=== PATIENT | female | born 1945 | race Caucasian/White ===

== ENCOUNTER 2023-12-02 07:52 | Day surgery (SDC) | payer OTHER ==
[2023-12-02] VITALS (10 sets, daily range): BP systolic 109–142; BP diastolic 51–88; PULSE 57–80; RESP 12–16; TEMP 98.3; O2SAT 97–100
[~2023-12-02] VITALS: Ht 154.9 cm; Wt 52.3 kg
[2023-12-02] MEDS: tranexamic acid inj. 1,000 MG in normal saline IV soln 100ML IV ONE (05:30)
[~2023-12-02 07:52] MED LIST: ASCO100031 PO; CALC600T22 PO; LISI20TA28 PO; MULT-1249 PO; RAME8TAB24 PO; SERT-434 PO; TRAZ-251 PO
[2023-12-02] MEDS ORDERED: mupirocin 2% ointment 22GM ONE (08:07)
[2023-12-02] MEDS ORDERED: tranexamic acid 100mg/ml inj. ONE (08:07)
[2023-12-02] MEDS ORDERED: EYE DROPS EACHEYE (08:54)
[2023-12-02] MEDS: famotidine 20mg tablet PO ONE (09:12)
[2023-12-02] MEDS: ringers solution, lacted 1,000 ML IV SCH (09:12)
[2023-12-02] MEDS: oxymetazoline 15 ML nasal spray NS ONE ×2 (09:22→12:05)
[2023-12-02] MEDS ORDERED: sugammadex 200mg/2ml injection IV ONE (10:10)
[2023-12-02] MEDS ORDERED: fentaNYL/PF 50MCG/1 ML 2ML syringe ONE (10:10)
[2023-12-02] MEDS ORDERED: sevoflurane 250ml liquid IH ONE (10:18)
[2023-12-02] MEDS: epiNEPHrine 1 mg/ml 30ml MDV ONE (12:04)
[2023-12-02] MEDS: cocaine 4% topical solution 4ml bottle ONE (12:04)
[2023-12-02] MEDS: LIDOcaine 1% W/epiNEPHrine 1:100,000 20ml vial ONE (12:04)
[2023-12-02] MEDS: Thrombin (Bovine) 5,000 unit vial TP ONE (12:05)
[2023-12-02] MEDS: methylPREDNISolone acetate 80mg/ml inj**IM only IJ ONE (12:07)
[2023-12-02] MEDS: dexamethasone 4mg/ml inj IM ONE (12:07)
[2023-12-02] MEDS ORDERED: hydrALAZINE 20mg/ml inj. IV PRN (13:30)
[2023-12-02] MEDS ORDERED: meperidine/PF 25mg/ml syringe IV PRN (13:30)
[2023-12-02] MEDS ORDERED: ringers solution, lacted 1,000 ML IV SCH (13:30)
[2023-12-02] MEDS ORDERED: proCHLORperazine 10 MG/2 ml inj IV PRN (13:30)
[2023-12-02] MEDS ORDERED: fentaNYL/PF 50MCG/1 ML 2ML syringe IV PRN (13:30)
[2023-12-02] MEDS ORDERED: HYDROmorphone/PF 0.2 MG/ML SYRINGE IV PRN ×2 (13:30)
[2023-12-02] MEDS ORDERED: labetalol 20mg/4ml (5mg/ml) syringe IV PRN (13:30)
[2023-12-02] MEDS ORDERED: ondansetron/PF 4mg/2ml inj IV PRN (13:30)
[2023-12-02] MEDS: fentaNYL/PF 50MCG/1 ML 2ML syringe IV PRN (13:35)
[2023-12-02] MEDS: salt irrigation nasal spray 45 ML SPRAY NS SCH (15:08)
[2023-12-02] MEDS: mupirocin 2% nasal ointment 1gm UD NS ONE (15:08)
[2023-12-02] MEDS ORDERED: mupirocin 2% nasal ointment 1gm UD NS SCH (21:00)
== END 2023-12-02 15:26 | disposition home or self-care (01) ==
LOC: PAS 07:52
PROVIDERS: ATTEND Otolaryngology
DX: J34.2 Deviated nasal septum (principal); J34.3 Hypertrophy of nasal turbinates; J32.9 Chronic sinusitis, unspecified; I10 Essential (primary) hypertension; F41.9 Anxiety disorder, unspecified; F32.A Depression, unspecified; Z79.899 Other long term (current) drug therapy; Z90.49 Acquired absence of other specified parts of digestive tract; Z90.710 Acquired absence of both cervix and uterus; Z98.890 Other specified postprocedural states; Z88.0 Allergy status to penicillin; Z88.1 Allergy status to other antibiotic agents
CPT/HCPCS: 30140; 30520; 31259; 31267; 31276; 61782; 82948; A6402; C1726; J0171; J1100; J2405; J2704; J3010; J3490; J7030; J7050; J7120; Z7506; Z7508; Z7512; 88300; 88304; 88311; A4618; A6449; A7000; J1010

== ENCOUNTER 2023-12-05 15:14 | Emergency (ER) | payer OTHER ==
[~2023-12-05] VITALS: Ht 154.9 cm; Wt 52.3 kg
[~2023-12-05 15:14] MED LIST changes: +EYE DROPS EACHEYE
[2023-12-05] MEDS: mineral oil 133ml enema RC PRN (16:54)
[2023-12-05] MEDS: methylnaltrexone br 12mg/0.6ml inj***SubQ only SQ ONE (17:00)
[2023-12-05 17:21] VITALS: BP 115/60; PULSE 92; RESP 16; TEMP 98.7; O2SAT 98
== END 2023-12-05 17:25 | disposition home or self-care (01) ==
LOC: ER 15:15
DX: K59.03 Drug induced constipation (principal); T40.2X5A Adverse effect of other opioids, initial encounter; Z88.1 Allergy status to other antibiotic agents; Z79.899 Other long term (current) drug therapy; Y92.89 Other specified places as the place of occurrence of the external cause
CPT/HCPCS: 74176; 99284